=== PATIENT | male | born 1955 | race Caucasian/White ===

== ENCOUNTER 2019-11-23 09:09 | Day surgery (SDC) | payer OTHER ==
[~2019-11-23 09:09] MED LIST: FUSION PLUS CA1 EACH PO; TOPROL XL100 M1 PO; VITAMIN B-121000 MC4 PO; VITAMIN D35000 UNI2
== END 2019-11-23 19:15 | disposition home or self-care (01) ==
LOC: CIR.AMB 09:09
DX: S42.031A Displaced fracture of lateral end of right clavicle, initial encounter for closed fracture (principal); S43.51XA Sprain of right acromioclavicular joint, initial encounter
CPT/HCPCS: 23552; 23120; C1776